=== PATIENT | male | born 1945 | race Caucasian/White ===

== ENCOUNTER 2017-08-11 12:49 | Emergency (ER) | payer MEDICARE ==
[~2017-08-11 12:49] MED LIST: Iopamidol 370 76% 100 ML VIAL ONE; Sodium Chloride 0.9% 1,000 ML BAG ONE
[2017-08-11] MEDS ORDERED: Ondansetron HCl/PF 4 MG/2 ML Vial ONE (13:19)
[2017-08-11] MEDS ORDERED: Morphine 10 MG/ML VIAL ONE (13:19)
[2017-08-11 13:50] LABS: Hemoglobin 13.7 g/dL (14.0-18.0); Lymphocytes 3 % (21-51); MDiff Complete? YES; Mean Corpuscular HGB CONC 34.3 g/dL (32.0-36.0); Mean Corpuscular Hemoglobin 30.3 pg (27.0-31.0); Mean Corpuscular Volume 88.3 fl (80.0-94.0); Mean Platelet Volume 5.9 fL (7.4-10.4); Neutrophil 86 % (42-75); PLT Morphology Comment Appears Adequate; Platelet Count 238 thou/uL (130-400); RBC Distribution Width 11.8 % (11.5-14.5); Reactive Lymphocytes 11 % (0-10); Red Blood Cell (RBC) Count 4.53 mill/uL (4.70-6.10); White Blood Cell (WBC) Count 14.3 thou/uL (4.8-10.8)
[2017-08-11 14:19] LABS: CKMB 0.5 ng/mL (0-6.6); Troponin I 0.024 ng/mL (< 0.028)
[2017-08-11 14:52] LABS: ALT (SGPT) 73 U/L (8-55); AST (SGOT) 45 U/L (5-34); Albumin 3.6 g/dL (3.4-4.8); Alkaline Phosphatase 59 U/L (40-150); Anion Gap 16 mmol/L (10-20); BUN (Urea Nitrogen) 24 mg/dL (8.4-25.7); Bilirubin, Total 1.2 mg/dL (0.2-1.2); Calc. Creatinine Clearance 0 mL/min (70-130); Calcium 8.8 mg/dL (7.8-10.44); Carbon Dioxide 24 mmol/L (23-31); Chloride 97 mmol/L (98-107); Estimated GFR-MDRD 67; Globulin 3.7 g/dL (2.4-3.5); Glucose 118 mg/dL (83-110); Lipase 45 U/L (8-78); Protein, Total 7.3 g/dL (5.8-8.1); Sodium 134 mmol/L (136-145)
--- NOTE | 2017-08-11 15:50 | CT ---
CT ABDOMEN AND PELVIS WITH IV CONTRAST: 08/11/17 HISTORY: Nausea, vomiting and fever for three days. FINDINGS: There are mild dependent changes in the lung bases. The patient is post cholecystectomy. The liver, s pleen, pancreas, adrenal glands, and right kidney are normal. There are low dense lesions in the left kidney consistent with cysts. The largest measuring 11 mm. No free air, free fluid or lymphadenopathy seen in the abdomen or pelvis. There is mild intrahepatic biliary ductal dilatation secondary to cholecystectomy. Vascular calcifications are present without e vidence of aneurysmal dilatation of the abdominal aorta. Postop changes of prostatectomy are present. There are degenerative changes in the spine. An abnormally dilated fluid filled appendix is not visu alized. No pericecal or pericolonic inflammatory changes are seen. IMPRESSION: No acute process. POS: [facility]
[2017-08-11 16:50] LABS: Bilirubin Negative (Negative); Blood, Urine Small (Negative); Glucose, Urine (Dipstick) Negative (Negative); Leukocyte Trace (Negative); Nitrite Positive (Negative); Protein, Urine (Dipstick) 30 mg/dL (Neg-Trace)
[2017-08-11 16:52] LABS: Clarity Cloudy (Clear)
[2017-08-11 16:59] LABS: Bacteria/HPF 2+ HPF (None Seen); Squamous Epithelial 0-3 HPF (0-3); WBC/HPF 21-50 HPF (0-3)
[2017-08-11] MEDS ORDERED: cefTRIAXone\\ROCEPHIN 2 GM VIAL ONE (17:07)
== END 2017-08-11 16:30 | disposition home or self-care (01) ==
LOC: MADERS 12:49
DX: N12 Tubulo-interstitial nephritis, not specified as acute or chronic (principal); I10 Essential (primary) hypertension; Z79.899 Other long term (current) drug therapy
CPT/HCPCS: 36415; 74177; 80053; 81003; 81015; 82553; 83690; 84484; 85025; 93005; 96361; 96374; 96375; J0696; J2270; J2405; J7050